=== PATIENT | male | born 1960 | race Caucasian/White ===

== ENCOUNTER 2020-09-14 02:32 | Inpatient (IN) | payer SELFPAY ==
[~2020-09-14] VITALS: Ht 365.8 cm; Wt 68.9 kg
[~2020-09-14 02:32] MED LIST: CLINDAMYCIN HC150 MG PO; ESIDRIX25 MG PO; LEVAQUIN500 MG PO; LISINOPRIL10 MG PO; MUCINEX DM ER1 EACH PO; PROTONIX40 MG/ML PO
[2020-09-14] MEDS ORDERED: ACETAMINOPHEN 325 MG TAB PO ONE (02:45)
[2020-09-14] MEDS ORDERED: ASPIRIN 81 MG CHEW TAB PO ONE (02:45)
[2020-09-14] MEDS ORDERED: SODIUM CHLORIDE 0.9% 1000ML 1,000 ML IV ONE (02:45)
[2020-09-14] MEDS ORDERED: CEFTRIAXONE SOD 1 GM 50 ML IV ONE (03:00)
[2020-09-14 03:04] LABS: BASOPHILS % 0.3 % (0.0-1.0); EOSINOPHILS % 0.3 % (0.0-6.0); HEMATOCRIT 29.5 % (38.2-49.6); HEMOGLOBIN 9.7 g/dL (14.0-18.0); LYMPHOCYTES % 8.6 % (18.0-39.1); MEAN CORPUSCULAR HEMOGLOBIN 29.9 pg (28-32); MEAN CORPUSCULAR HGB CONC 32.9 g/dL (31-35); MONOCYTES # (AUTO) 0.9 (0.2-0.8); MONOCYTES % 8.3 % (4.4-11.3); NEUTROPHILS # (AUTO) 9.1 (2.1-6.9); PLATELET COUNT 151 x10e3/uL (140-360); RED BLOOD COUNT 3.24 x10e6/uL (4.3-5.7); RED CELL DISTRIBUTION WIDTH 15.6 % (11.7-14.4)
[2020-09-14] MEDS ORDERED: CEFTRIAXONE SOD 1 GM VIAL ONE (03:04)
[2020-09-14 03:18] LABS: ALANINE AMINOTRANSFERASE 20 IU/L (0-55); ALBUMIN 2.5 g/dL (3.5-5.0); ALBUMIN/GLOBULIN RATIO 0.5 (0.8-2.0); ALKALINE PHOSPHATASE 73 IU/L (40-150); ANION GAP 11.7 mmol/L (8-16); BLOOD UREA NITROGEN 17 mg/dL (7-26); BUN/CREATININE RATIO 22 (6-25); CALCIUM 7.9 mg/dL (8.4-10.2); CARBON DIOXIDE 25 mmol/L (22-29); CHLORIDE 94 mmol/L (98-107); CREATINE KINASE 40 IU/L (30-200); CREATININE, SERUM 0.78 mg/dL (0.72-1.25); EST GLOMERULAR FILTRATION RATE > 60 ML/MIN (60-); GLUCOSE 107 mg/dL (74-118); POTASSIUM 3.7 mmol/L (3.5-5.1); SODIUM 127 mmol/L (136-145)
[2020-09-14 03:22] LABS: CLARITY,URINE SL CLOUDY (CLEAR); COLOR,URINE AMBER (YELLOW); LEUKOCYTE ESTERASE ,URINE NEGATIVE (NEGATIVE); NITRITE,URINE NEGATIVE (NEGATIVE)
[2020-09-14 03:23] LABS: AMPHETAMINES SCREEN,URINE POSITIVE (NEGATIVE); BENZODIAZEPINES SCREEN,URINE NEGATIVE (NEGATIVE); KETONES,URINE NEGATIVE (NEGATIVE); PHENCYCLIDINE SCREEN,URINE NEGATIVE (NEGATIVE); PROTEIN,URINE DIPSTICK 2+ (NEGATIVE)
[2020-09-14 03:32] LABS: BACTERIA,URINE MODERATE /HPF; EPITHELIAL CELLS,URINE RARE /LPF; WBC,URINE (MAN) 0-5 /HPF (0-5); YEAST,URINE RARE
[2020-09-14] MEDS ORDERED: SODIUM CHLORIDE FLUSH 10 ML SYR INJ PRN (04:15)
[2020-09-14] MEDS ORDERED: ONDANSETRON HCL INJ 2MG/ML 2ML 2 MG/ML VIAL IV PRN (04:15)
[2020-09-14] MEDS ORDERED: VANCOMYCIN 1GM/NS 250 ML 250 ML ONE (04:21)
[2020-09-14] MEDS: CEFEPIME 2 GM/NS 0.9% 100 ML 100 ML IV SCH ×4 (04:21→21:33)
[2020-09-14] MEDS ORDERED: CEFEPIME 2 GM/NS 0.9% 100 ML 100 ML IV ONE (04:23)
[2020-09-14] MEDS ORDERED: NAFCILLIN SOD 2 GM/NS 100ML 100 ML IV SCH (04:30)
[2020-09-14] MEDS: VANCOMYCIN 1GM/NS 250 ML 250 ML IV SCH ×2 (05:17→16:50)
[2020-09-14] MEDS: SODIUM CHLORIDE 0.9% 1000ML 1,000 ML IV SCH ×2 (05:17→15:32)
[2020-09-14 12:38] LABS: CREATINE KINASE MB 1.3 ng/mL (0-5.0)
[2020-09-14] MEDS: ACETAMINOPHEN 325 MG TAB PO PRN ×2 (13:45→18:45)
[2020-09-14 14:50] VITALS: BP 119/75
[2020-09-14 16:42] VITALS: BP 127/71
[2020-09-14 19:49] VITALS: BP 109/58
[2020-09-15] VITALS (8 sets, daily range): BP systolic 111–140; BP diastolic 59–90
[2020-09-15] MEDS: SODIUM CHLORIDE 0.9% 1000ML 1,000 ML IV SCH ×3 (00:15→23:24)
[2020-09-15] MEDS: VANCOMYCIN 1GM/NS 250 ML 250 ML IV SCH ×2 (04:30→16:30)
[2020-09-15] MEDS: ACETAMINOPHEN 325 MG TAB PO PRN ×2 (05:06→23:29)
[2020-09-15] MEDS: CEFEPIME 2 GM/NS 0.9% 100 ML 100 ML IV SCH (06:46)
[2020-09-15 07:44] LABS: BASOPHILS % 0.5 % (0.0-1.0); EOSINOPHILS # (AUTO) 0.1 (0.0-0.4); EOSINOPHILS % 1.6 % (0.0-6.0); HEMATOCRIT 27.2 % (38.2-49.6); HEMOGLOBIN 8.9 g/dL (14.0-18.0); LYMPHOCYTES # (AUTO) 0.9 (1.0-3.2); LYMPHOCYTES % 13.6 % (18.0-39.1); MEAN CORPUSCULAR HEMOGLOBIN 30.8 pg (28-32); MEAN CORPUSCULAR HGB CONC 32.7 g/dL (31-35); MEAN CORPUSCULAR VOLUME 94.1 fL (81-99); MONOCYTES # (AUTO) 0.6 (0.2-0.8); MONOCYTES % 9.8 % (4.4-11.3); NEUTROPHILS # (AUTO) 4.7 (2.1-6.9); NEUTROPHILS % 73.9 % (38.7-80.0); PLATELET COUNT 130 x10e3/uL (140-360); RED BLOOD COUNT 2.89 x10e6/uL (4.3-5.7); RED CELL DISTRIBUTION WIDTH 15.7 % (11.7-14.4)
[2020-09-15 08:05] LABS: ALANINE AMINOTRANSFERASE 17 IU/L (0-55); ALBUMIN 1.9 g/dL (3.5-5.0); ALBUMIN/GLOBULIN RATIO 0.4 (0.8-2.0); ALKALINE PHOSPHATASE 67 IU/L (40-150); ANION GAP 7.8 mmol/L (8-16); BLOOD UREA NITROGEN 11 mg/dL (7-26); BUN/CREATININE RATIO 17 (6-25); CALCIUM 7.4 mg/dL (8.4-10.2); CARBON DIOXIDE 23 mmol/L (22-29); CHLORIDE 106 mmol/L (98-107); CHOL/HDL RATIO 3.3 (3.9-4.7); CHOLESTEROL 91 MD/DL (0-199); CREATININE, SERUM 0.66 mg/dL (0.72-1.25); EST GLOMERULAR FILTRATION RATE > 60 ML/MIN (60-); GLUCOSE 116 mg/dL (74-118); HDL CHOLESTEROL 28 MG/DL (40-60); LDL CHOLESTEROL 56 MG/DL (60-130); POTASSIUM 3.8 mmol/L (3.5-5.1); SODIUM 133 mmol/L (136-145); TRIGLYCERIDES 34 MG/DL (0-149)
[2020-09-16] VITALS (7 sets, daily range): BP systolic 124–155; BP diastolic 73–110
[2020-09-16] MEDS: ACETAMINOPHEN 325 MG TAB PO PRN ×2 (04:10→20:09)
[2020-09-16] MEDS: VANCOMYCIN 1GM/NS 250 ML 250 ML IV SCH ×2 (04:30→16:52)
[2020-09-16] MEDS: SODIUM CHLORIDE 0.9% 1000ML 1,000 ML IV SCH ×2 (05:53→16:52)
[2020-09-17 00:24] VITALS: BP 130/78
[2020-09-17] MEDS: SODIUM CHLORIDE 0.9% 1000ML 1,000 ML IV SCH ×3 (02:15→22:15)
[2020-09-17] MEDS: VANCOMYCIN 1GM/NS 250 ML 250 ML IV SCH (04:30)
[2020-09-17 04:35] VITALS: BP 128/82
[2020-09-17] MEDS: ACETAMINOPHEN 325 MG TAB PO PRN ×3 (05:39→20:24)
[2020-09-17 07:43] LABS: BASOPHILS % 0.3 % (0.0-1.0); EOSINOPHILS # (AUTO) 0.1 (0.0-0.4); EOSINOPHILS % 1.6 % (0.0-6.0); HEMATOCRIT 26.9 % (38.2-49.6); LYMPHOCYTES # (AUTO) 0.8 (1.0-3.2); LYMPHOCYTES % 12.3 % (18.0-39.1); MEAN CORPUSCULAR HEMOGLOBIN 31.4 pg (28-32); MEAN CORPUSCULAR HGB CONC 33.5 g/dL (31-35); MEAN CORPUSCULAR VOLUME 93.7 fL (81-99); MONOCYTES # (AUTO) 0.4 (0.2-0.8); MONOCYTES % 5.9 % (4.4-11.3); NEUTROPHILS # (AUTO) 5.1 (2.1-6.9); NEUTROPHILS % 79.3 % (38.7-80.0); PLATELET COUNT 150 x10e3/uL (140-360); RED BLOOD COUNT 2.87 x10e6/uL (4.3-5.7); RED CELL DISTRIBUTION WIDTH 15.9 % (11.7-14.4)
[2020-09-17 08:06] LABS: ANION GAP 8.5 mmol/L (8-16); BLOOD UREA NITROGEN 8 mg/dL (7-26); BUN/CREATININE RATIO 13 (6-25); CALCIUM 7.3 mg/dL (8.4-10.2); CARBON DIOXIDE 23 mmol/L (22-29); CHLORIDE 105 mmol/L (98-107); EST GLOMERULAR FILTRATION RATE > 60 ML/MIN (60-); GLUCOSE 141 mg/dL (74-118); POTASSIUM 3.5 mmol/L (3.5-5.1); SODIUM 133 mmol/L (136-145)
[2020-09-17 12:22] VITALS: BP 112/64
[2020-09-17] MEDS: VANCOMYCIN HCL 1.25 GM in SODIUM CHLORIDE 0.9% 250ML 250 ML IV SCH (16:00)
[2020-09-17 20:00] VITALS: BP 148/82
[2020-09-17 21:00] VITALS: BP 148/82
[2020-09-18] MEDS: VANCOMYCIN HCL 1.25 GM in SODIUM CHLORIDE 0.9% 250ML 250 ML IV SCH ×2 (03:05→15:18)
[2020-09-18 04:00] VITALS: BP 139/81
[2020-09-18] MEDS: ACETAMINOPHEN 325 MG TAB PO PRN (05:07)
[2020-09-18 06:13] LABS: BASOPHILS % 0.5 % (0.0-1.0); EOSINOPHILS # (AUTO) 0.1 (0.0-0.4); EOSINOPHILS % 1.8 % (0.0-6.0); HEMATOCRIT 28.1 % (38.2-49.6); HEMOGLOBIN 9.4 g/dL (14.0-18.0); LYMPHOCYTES # (AUTO) 0.8 (1.0-3.2); LYMPHOCYTES % 11.5 % (18.0-39.1); MEAN CORPUSCULAR HEMOGLOBIN 30.5 pg (28-32); MEAN CORPUSCULAR HGB CONC 33.5 g/dL (31-35); MEAN CORPUSCULAR VOLUME 91.2 fL (81-99); MONOCYTES # (AUTO) 0.4 (0.2-0.8); MONOCYTES % 6.7 % (4.4-11.3); NEUTROPHILS # (AUTO) 5.2 (2.1-6.9); NEUTROPHILS % 78.9 % (38.7-80.0); PLATELET COUNT 166 x10e3/uL (140-360); RED BLOOD COUNT 3.08 x10e6/uL (4.3-5.7); RED CELL DISTRIBUTION WIDTH 16.2 % (11.7-14.4)
[2020-09-18 06:35] LABS: ANION GAP 7.8 mmol/L (8-16); BLOOD UREA NITROGEN 10 mg/dL (7-26); BUN/CREATININE RATIO 17 (6-25); CALCIUM 7.5 mg/dL (8.4-10.2); CARBON DIOXIDE 26 mmol/L (22-29); CHLORIDE 106 mmol/L (98-107); CREATININE, SERUM 0.58 mg/dL (0.72-1.25); EST GLOMERULAR FILTRATION RATE > 60 ML/MIN (60-); GLUCOSE 94 mg/dL (74-118); POTASSIUM 3.8 mmol/L (3.5-5.1); SODIUM 136 mmol/L (136-145)
[2020-09-18 07:59] VITALS: BP 137/72
[2020-09-18 08:01] VITALS: BP 137/72
[2020-09-18] MEDS ORDERED: BENZOCAINE 20% SPR 60 ML CAN ONE (09:45)
[2020-09-18] MEDS ORDERED: SODIUM CHLORIDE 0.9% 1000ML 1,000 ML ONE (09:45)
[2020-09-18 10:27] VITALS: BP 116/70
[2020-09-18 10:41] VITALS: BP 114/75
[2020-09-18 11:52] VITALS: BP 123/82
[2020-09-18] MEDS ORDERED: FENTANYL CITRATE/PF 100MCG/2 ML INJ ONE (12:22)
[2020-09-18] MEDS ORDERED: MIDAZOLAM HCL 2 MG/2 ML VIAL ONE (12:22)
[2020-09-18] MEDS ORDERED: PROPOFOL IV EMULSION 10 MG/ML 20 ML VIAL ONE (12:43)
[2020-09-18] MEDS ORDERED: ZYVOX100 MG/5 M PO (13:02)
== END 2020-09-18 17:26 | disposition home or self-care (01) | DRG 871 ==
LOC: ER 03:31 → ERHOLD 04:13 → MED/SURG2 09:44
PROVIDERS: ADMIT Family Medicine; ATTEND Family Medicine
DX: A41.9 Sepsis, unspecified organism (principal); I33.0 Acute and subacute infective endocarditis; F11.20 Opioid dependence, uncomplicated; E87.1 Hypo-osmolality and hyponatremia; B19.20 Unspecified viral hepatitis C without hepatic coma; X31.XXXA Exposure to excessive natural cold, initial encounter; I71.4 Abdominal aortic aneurysm, without rupture; I08.0 Rheumatic disorders of both mitral and aortic valves; R45.1 Restlessness and agitation; Z59.0 Homelessness; Z20.822 Contact with and (suspected) exposure to COVID-19; Z87.891 Personal history of nicotine dependence
CPT/HCPCS: 36415; 71045; 80048; 80053; 80061; 80202; 80307; 81001; 82550; 82553; 83605; 84484; 85025; 87040; 87071; 87205; 93005; 93306; 93307; 93312; 93325; 99284; J0696; J2250; J3010; J3370; J7030; J7050; U0002